=== PATIENT | female | born 1980 | race American Indian/Alaskan Native ===

== ENCOUNTER 2017-10-02 13:01 | Outpatient (CLI) | payer OTHER ==
--- NOTE | 2017-10-02 16:52 | XRay Report ---
XRAY BILATERAL KNEE FOUR VIEWS EACH: 10/02/17 13:01:00 CLINICAL: Bilateral knee pain. FINDINGS: Right: Status post ACL graft repair with a single fixation screw in the mid tibia. Mild osteopenia. No fracture or dislocation. Mild medial joint space narrowing. No osteophytes. The lateral joint space is normal. Mild patellofemoral joint arthritis. No joint effusion. Normal soft tissues. Left: Mild osteopenia. No fracture or dislocation. Mild medial joint space narrowing. The lateral joint space and patellofemoral joint are normal. No joint effusion.Normal soft tissues. IMPRESSION: Status post right ACL graft repair. Mild right patellofemoral joint arthritis.Mild left medial joint osteoarthritis.
== END 2017-10-02 13:02 | disposition home or self-care (01) ==
LOC: SPVIMAG 13:01
PROVIDERS: ATTEND Orthopaedic Surgery Sports Medicine
DX: M17.11 Unilateral primary osteoarthritis, right knee (principal); M85.862 Other specified disorders of bone density and structure, left lower leg; M85.861 Other specified disorders of bone density and structure, right lower leg; Z98.890 Other specified postprocedural states